=== PATIENT | male | born 1995 ===

== ENCOUNTER 2018-12-12 03:49 | Emergency (ER) | payer SELFPAY ==
[2018-12-12 04:25] LABS: #Lymphocytes 1.2 thou/uL (1.20-3.40); #Monocytes 0.9 thou/uL (0.11-0.59); #Neutrophils 9.6 thou/uL (1.40-6.50); %Basophils 0.2 % (0.0-1.0); %Eosinophils 0.2 % (0.0-10.0); %Lymphocytes 9.8 % (21.0-51.0); %Neutrophils 81.9 % (42.0-75.0); Hemoglobin 17.4 g/dL (14.0-18.0); Mean Corpuscular HGB CONC 34.7 g/dL (32.0-36.0); Mean Corpuscular Hemoglobin 32.5 pg (27.0-31.0); Mean Corpuscular Volume 93.5 fL (78.0-98.0); Mean Platelet Volume 7.3 fL (7.4-10.4); Platelet Count 289 thou/uL (130-400); RBC Distribution Width 12.2 % (11.5-14.5); Red Blood Cell (RBC) Count 5.35 mill/uL (4.70-6.10); White Blood Cell (WBC) Count 11.8 thou/uL (4.8-10.8)
[2018-12-12 04:46] LABS: ALT (SGPT) 19 U/L (8-55); AST (SGOT) 16 U/L (5-34); Albumin 5.3 g/dL (3.5-5.0); Alkaline Phosphatase 88 U/L (40-150); Anion Gap 15 mmol/L (10-20); BUN (Urea Nitrogen) 8 mg/dL (8.9-20.6); Bilirubin, Total 1.1 mg/dL (0.2-1.2); Calc. Creatinine Clearance 0 mL/min (70-130); Calcium 10.3 mg/dL (7.8-10.44); Carbon Dioxide 24 mmol/L (22-29); Chloride 102 mmol/L (98-107); Estimated GFR-MDRD 75; Glucose 133 mg/dL (70-105); Potassium 3.4 mmol/L (3.5-5.1); Protein, Total 8.3 g/dL (6.0-8.3); Sodium 138 mmol/L (136-145)
[2018-12-12] MEDS ORDERED: Ondansetron PF 4 MG/2 ML Vial ONE ×3 (05:17→05:36)
[2018-12-12] MEDS ORDERED: Morphine 4 MG/ML VIAL ONE ×2 (05:17→05:33)
[2018-12-12] MEDS ORDERED: HYDROcodone/Acetaminophen 5/325 mg Tablet ONE (07:16)
--- NOTE | 2018-12-12 07:20 | CT ---
CT ABDOMEN AND PELVIS WITHOUT IV CONTRAST: Date: 12/12/18 INDICATION: History of right-sided flank pain. COMPARISON: None. FINDINGS: The lung bases are clear. The unopacified liver, pancreas, adrenal glands, and spleen reveal no definite acute abnormality. The lack of IV contrast limits image detail of these structures. No definite renal or ureteral calculus is evident. No hydronephrosis is demonstrated. There is a normal appendix in the right lower quadrant. The bladder is decompressed. The rectum and p erirectal soft tissues are unremarkable appearing. No acute osseous abnormality is demonstrated. IMPRESSION: No renal or ureteral calculus. POS: BH
== END 2018-12-12 08:44 | disposition home or self-care (01) ==
LOC: ERS 03:49
DX: R10.9 Unspecified abdominal pain (principal); I10 Essential (primary) hypertension; Z87.891 Personal history of nicotine dependence
CPT/HCPCS: 36415; 74176; 80053; 85025; 96361; 96374; 96375; J2270; J2405